=== PATIENT | male | born 1985 | race American Indian/Alaskan Native ===

== ENCOUNTER 2016-08-12 15:04 | Emergency (ER) | payer MEDICAID, OTHER ==
[2016-08-12 15:09] VITALS: TEMP 98.3; BMI 38.4
--- NOTE | 2016-08-12 15:30 | ED PDOC ---
Arrival/HPI - General Historian: Patient <Audie Wagner - Last Filed: 08/12/16 21:39> <Silviano Jackson - Last Filed: 08/12/16 21:45> - General Chief Complaint: Lower Extremity Problem/Injury Time Seen by Provider: 08/12/16 15:26 - History of Present Illness Narrative History of Present Illness (Text): 08/12/16 15:27 30 y/o male, no significant pmh, nkda, c/o rt. ankle pain s/p inversion injury about 3 days ago. Aching pain, aggravated by walking and bearing weight, no numbness or tingling, no foot pain, no dizziness, no change in vision, no night sweat, no palpitation, no other medical or psychological complaints. (Audie Wagner) Past Medical History - Provider Review Nursing Documentation Reviewed: Yes - Infectious Disease Hx of Infectious Diseases: None - Tetanus Immunization Tetanus Immunization: Unknown - Reproductive Currently : No Currently Lactating: No - Past Medical History Past Medical History: No Previous - Psychiatric Hx Depression: No Hx Emotional Abuse: No Hx Physical Abuse: No Hx Substance Use: No - Past Surgical History Past Surgical History: No Previous - Anesthesia Hx Anesthesia: No Hx Anesthesia Reactions: No Hx Malignant Hyperthermia: No - Suicidal Assessment Feels Threatened In Home Enviroment: No <Audie Wagner - Last Filed: 08/12/16 21:39> Family/Social History - Physician Review Nursing Documentation Reviewed: Yes Family/Social History: Unknown Family HX Smoking Status: Never Smoked Hx Alcohol Use: Yes Hx Substance Use: No Hx Substance Use Treatment: No <Audie Wagner - Last Filed: 08/12/16 21:39> Allergies/Home Meds <Audie Wagner - Last Filed: 08/12/16 21:39> <Silviano Jackson - Last Filed: 08/12/16 21:45> Allergies/Adverse Reactions: Allergies No Known Allergies Allergy (Verified 04/23/16 11:18) Home Medications: Home Meds Medication Instructions Recorded Confirmed No Known Home Med 08/12/16 08/12/16 Review of Systems - Review of Systems Constitutional: absent: Fatigue, Fevers Eyes: absent: Vision Changes ENT: absent: Hearing Changes Respiratory: absent: Cough Cardiovascular: absent: Chest Pain Gastrointestinal: absent: Abdominal Pain, Diarrhea, Nausea, Vomiting Musculoskeletal: Arthralgias. absent: Back Pain, Neck Pain, Joint Swelling, Myalgias Skin: absent: Rash, Pruritis Endocrine: absent: Diaphoresis Hemo/Lymphatic: absent: Adenopathy Psychiatric: absent: Anxiety <Audie Wagner - Last Filed: 08/12/16 21:39> Physical Exam Vital Signs Reviewed: Yes Temperature: Afebrile Blood Pressure: Hypertensive Pulse: Tachycardic Respiratory Rate: Normal Appearance: Positive for: Well-Appearing, Non-Toxic, Comfortable Pain Distress: Moderate Mental Status: Positive for: Alert and Oriented X 3 - Systems Exam Head: Present: Atraumatic, Normocephalic Pupils: Present: PERRL Extroacular Muscles: Present: EOMI Conjunctiva: Present: Normal Mouth: Present: Moist Mucous Membranes Neck: Present: Normal Range of Motion Respiratory/Chest: Present: Clear to Auscultation, Good Air Exchange. No: Respiratory Distress, Accessory Muscle Use Cardiovascular: Present: Regular Rate and Rhythm, Normal S1, S2. No: Murmurs Abdomen: Present: Normal Bowel Sounds. No: Tenderness, Distention, Peritoneal Signs Back: Present: Normal Inspection Upper Extremity: Present: Normal Inspection. No: Cyanosis, Edema Lower Extremity: Present: Normal Inspection, Other (Rt. ankle/foot: +ttp and mild swelling to the lateral and medial malleolus region, negative shekhar and roque signs, no foot tenderness or swelling, FROM without limitation, sesnation intact, motor 5/5, +DPPT pulses, capillary refill< 2 seconds, neurovascular intact. ). No: Edema Neurological: Present: GCS=15, Speech Normal, Motor Func Grossly Intact, Memory Normal Skin: Present: Warm, Dry, Normal Color. No: Rashes Psychiatric: Present: Alert, Oriented x 3, Normal Insight, Normal Concentration <Audie Wagner - Last Filed: 08/12/16 21:39> Vital Signs Temp Pulse Resp BP Pulse Ox 08/12/16 16:36 92 H 18 142/86 98 08/12/16 15:07 98.3 F 118 H 16 155/103 H 97 Medical Decision Making - RAD Interpretation Lace Cutter: Radiologist <Audie Wagner - Last Filed: 08/12/16 21:39> <Silviano Jacskon - Last Filed: 08/12/16 21:45> ED Course and Treatment: 08/12/16 15:29 -motrin, pt. refused IV or IM -xray -observe and reassess 08/12/16 16:27 -Rt. ankle show no fracture or dislocation except soft tissue swelling, hussein wrap applied with neurovascular intact, crutches given. -Discharge home with naproxen, hussein wrap, crutches, ice pack, non-weight bearing , follow up with your own pmd and orthopedic within 2 days, return to the ER for any new or worsening signs or symptoms. (Audie Wagner) - RAD Interpretation Radiology Orders: 08/12/16 15:26 ANKLE RIGHT 3 VIEWS ROUTINE [RAD] Stat no acute fracture, lateral soft tissue swelling. (Audie Wagner) - Medication Orders Current Medication Orders: Discontinued Medications Ibuprofen (Motrin Tab) 800 mg PO STAT STA Stop: 08/12/16 15:27 Last Admin: 08/12/16 16:37 Dose: 800 MG Comments: Patient initially refused. Now requesting medication. [facility] Pain/Vitals Document 08/12/16 16:37 SF (Rec: 08/12/16 16:38 SF [facility] [id number]) Pain Reassessment Is This A Pain ReAssessment? Yes Sleep Is patient sleeping during reassessment? No Presence of Pain Presence of Pain Yes Pain Scale Used Pain Scale Used Numeric Location Left, Right or Bilateral Right Pain Location Body Site Ankle Description Constant Intensity 8 Scale Used Numeric - PA / REPAIRER [employer] / Resident Statement MD/DO has reviewed & agrees with the documentation as recorded. <Silviano Jackson - Last Filed: 08/12/16 21:45> Disposition/Present on Arrival - Present on Arrival Any Indicators Present on Arrival: No History of DVT/PE: No History of Uncontrolled Diabetes: No Urinary Catheter: No History of Decub. Ulcer: No History Surgical Site Infection Following: None - Disposition Have Diagnosis and Disposition been Completed?: Yes Disposition Time: 16:28 Patient Plan: Discharge <Audie Wagner - Last Filed: 08/12/16 21:39> <Silviano Jackson - Last Filed: 08/12/16 21:45> - Disposition Diagnosis: Ankle injury, Ankle pain Disposition: HOME/ ROUTINE Condition: GOOD Additional Instructions: Discharge home with naproxen, hussein wrap, crutches, ice pack, non-weight bearing, follow up with your own pmd and orthopedic within 2 days, return to the ER for any new or worsening signs or symptoms. Referrals: Gentry Girard MD [Staff Provider] - Follow up with primary Forms: WORK NOTE
[2016-08-12 16:37] VITALS: BP 142/86; PULSE 92; RESP 18; O2SAT 98
--- NOTE | 2016-08-12 17:17 | RAD ---
PROCEDURE: Right Ankle Radiographs. HISTORY: rt. ankle inversion injury x 3 days COMPARISON: None FINDINGS: BONES: Normal. No fracture. JOINTS: Normal. No osteoarthritis. Ankle mortise maintained. Talar dome intact SOFT TISSUES: Lateral soft tissue swelling is noted. OTHER FINDINGS: None. IMPRESSION: No acute fracture. Lateral soft tissue swelling.
== END 2016-08-12 16:42 | disposition home or self-care (01) ==
LOC: ED 15:04
DX: S99.911A Unspecified injury of right ankle, initial encounter (principal); X58.XXXA Exposure to other specified factors, initial encounter; M25.571 Pain in right ankle and joints of right foot

== ENCOUNTER 2016-09-17 10:23 | Emergency (ER) | payer MEDICAID ==
[2016-09-17 10:23] VITALS: BMI 38.4
[2016-09-17 10:29] VITALS: BP 140/92; RESP 18; TEMP 98.4
--- NOTE | 2016-09-17 10:31 | ED PDOC ---
Arrival/HPI - General Time Seen by Provider: 09/17/16 10:24 Historian: Patient - History of Present Illness Narrative History of Present Illness (Text): 09/17/16 10:30 30 y/o male, no pmh, nkda, c/o rt. armpit abscess x 3 days with no fever or chills. Aching pain, started off as a small pimple and been growing, no fever or chills, no difficulty moving the rt. upper extremity with no numbness or tingling, no headache or night sweat, no change in vision, no rash, no other medical or psychological complaints. Past Medical History - Provider Review Nursing Documentation Reviewed: Yes - Infectious Disease Hx of Infectious Diseases: None - Tetanus Immunization Tetanus Immunization: Unknown - Reproductive Currently : No Currently Lactating: No - Past Medical History Past Medical History: No Previous - Psychiatric Hx Depression: No Hx Emotional Abuse: No Hx Physical Abuse: No Hx Substance Use: No - Past Surgical History Past Surgical History: No Previous - Anesthesia Hx Anesthesia: No Hx Anesthesia Reactions: No Hx Malignant Hyperthermia: No - Suicidal Assessment Feels Threatened In Home Enviroment: No Family/Social History - Physician Review Nursing Documentation Reviewed: Yes Family/Social History: Unknown Family HX Smoking Status: Never Smoked Hx Alcohol Use: Yes Hx Substance Use: No Hx Substance Use Treatment: No Allergies/Home Meds Allergies/Adverse Reactions: Allergies No Known Allergies Allergy (Verified 09/17/16 10:29) Review of Systems - Review of Systems Constitutional: absent: Fatigue, Fevers Eyes: absent: Vision Changes ENT: absent: Hearing Changes Respiratory: absent: Cough, Sputum Cardiovascular: absent: Chest Pain Gastrointestinal: absent: Abdominal Pain, Nausea, Vomiting Skin: Abscess. absent: Rash, Pruritis, Skin Lesions, Laceration, Ulcer, Cellulitis Neurological: absent: Headache, Dizziness, Speech Changes, Facial Droop Physical Exam Vital Signs Temp Pulse Resp BP Pulse Ox 09/17/16 10:25 98.4 F 110 H 18 140/92 H 99 Temperature: Afebrile Blood Pressure: Hypertensive Pulse: Tachycardic Respiratory Rate: Normal Appearance: Positive for: Well-Appearing, Non-Toxic, Comfortable Pain Distress: Moderate Mental Status: Positive for: Alert and Oriented X 3 - Systems Exam Head: Present: Atraumatic, Normocephalic Pupils: Present: PERRL Extroacular Muscles: Present: EOMI Conjunctiva: Present: Normal Mouth: Present: Moist Mucous Membranes Neck: Present: Normal Range of Motion Respiratory/Chest: Present: Clear to Auscultation, Good Air Exchange. No: Respiratory Distress, Accessory Muscle Use Cardiovascular: Present: Regular Rate and Rhythm, Normal S1, S2. No: Murmurs Abdomen: Present: Normal Bowel Sounds. No: Tenderness, Distention, Peritoneal Signs Back: Present: Normal Inspection Upper Extremity: Present: Normal Inspection. No: Cyanosis, Edema Lower Extremity: Present: Normal Inspection. No: Edema Neurological: Present: GCS=15, Speech Normal, Motor Func Grossly Intact, Gait Normal, Memory Normal Skin: Present: Warm, Dry, Rashes (rt. axillary visible and palpable fluctuant abscess noted with confimed by bedside sonogram with tracts form noted, no cellultis or ulcer. ), Normal Color Psychiatric: Present: Alert, Oriented x 3, Normal Insight, Normal Concentration Medical Decision Making ED Course and Treatment: 09/17/16 11:11 -keflex, bactrim ds, motrin -sensation intact, motor 5/5, clean with saline and betadine, 1% lidocaine injected locally approx. 1cc of plain 1% lidocaine noted, #11 blade made less than 1cm incision wound on each abscess region with total of approx. 5cc of purulant discharge noted, iodofoam packing inserted on each incision wound, hemostasis obtained, bacitracin applied, gauze dressing, sensation intact, motor 5/5. -Pt. feels much better, will discharge home. -Discharge home with keflex, bactrim ds, motrin, keep the dressing dry and clean for 2 days which you have to return to the ER for packing change and removal, follow up with your own pmd and general surgeon within 2 days, return to the ER for any new or worsening signs or symptoms. - PA / DIRECTOR MOBILE / Resident Statement MD/DO has reviewed & agrees with the documentation as recorded. Disposition/Present on Arrival - Present on Arrival Any Indicators Present on Arrival: No History of DVT/PE: No History of Uncontrolled Diabetes: No Urinary Catheter: No History of Decub. Ulcer: No History Surgical Site Infection Following: None - Disposition Have Diagnosis and Disposition been Completed?: Yes Diagnosis: Abscess of axillary fold Disposition: HOME/ ROUTINE Disposition Time: :17 Patient Plan: Discharge Condition: GOOD Additional Instructions: Discharge home with keflex, bactrim ds, motrin, keep the dressing dry and clean for 2 days which you have to return to the ER for packing change and removal, follow up with your own pmd and general surgeon within 2 days, return to the ER for any new or worsening signs or symptoms. Prescriptions: Sulfamethoxazole/Trimethoprim [Bactrim Ds Tablet] 1 each PO BID #20 tablet Cephalexin [Keflex] 500 mg PO QID #40 capsule Ibuprofen [Motrin Tab] 600 mg PO QID PRN #24 tab PRN Reason: Other Referrals: James Fonseca MD [Staff Provider] - Follow up with primary [facility] [place] [Outside] - Follow up with primary Forms: WORK NOTE
[2016-09-17] MEDS ORDERED: Tmp-Smz 800 mg-160 mg DS Tab PO STA (11:06)
[2016-09-17 11:24] VITALS: PULSE 95; O2SAT 100
== END 2016-09-17 11:35 | disposition home or self-care (01) ==
LOC: ED 10:23
DX: L02.411 Cutaneous abscess of right axilla (principal)

== ENCOUNTER 2016-09-19 11:19 | Emergency (ER) | payer MEDICAID ==
[2016-09-19 11:19] VITALS: BMI 38.4
[2016-09-19 11:41] VITALS: RESP 16; TEMP 97.6
--- NOTE | 2016-09-19 12:14 | ED PDOC ---
Arrival/HPI - General Chief Complaint: Wound Check Time Seen by Provider: 09/19/16 12:12 Historian: Patient - History of Present Illness Narrative History of Present Illness (Text): 09/19/16 12:12 30yo male in ED for packing removal. Packing was placed here on 09/17/17 s/p I&D two days ago. Denies fever, chills, any other complaint. Past Medical History - Provider Review Nursing Documentation Reviewed: Yes - Infectious Disease Hx of Infectious Diseases: None - Tetanus Immunization Tetanus Immunization: Unknown - Reproductive Currently : No Currently Lactating: No - Past Medical History Past Medical History: No Previous - Psychiatric Hx Depression: No Hx Emotional Abuse: No Hx Physical Abuse: No Hx Substance Use: No - Past Surgical History Past Surgical History: No Previous - Anesthesia Hx Anesthesia: No Hx Anesthesia Reactions: No Hx Malignant Hyperthermia: No - Suicidal Assessment Feels Threatened In Home Enviroment: No Family/Social History - Physician Review Nursing Documentation Reviewed: Yes Family/Social History: Unknown Family HX Smoking Status: Never Smoked Hx Alcohol Use: No Hx Substance Use: No Hx Substance Use Treatment: No Allergies/Home Meds Allergies/Adverse Reactions: Allergies No Known Allergies Allergy (Verified 09/19/16 11:40) Review of Systems - Physician Review All systems were reviewed & negative as marked: Yes - Review of Systems Constitutional: Normal Eyes: Normal ENT: Normal Respiratory: Normal Cardiovascular: Normal Gastrointestinal: Normal Genitourinary Male: Normal Musculoskeletal: Normal Skin: Other (Packing removal) Neurological: Normal Endocrine: Normal Hemo/Lymphatic: Normal Psychiatric: Normal Physical Exam Vital Signs Reviewed: Yes Vital Signs Temp Pulse Resp BP Pulse Ox 09/19/16 12:36 86 16 140/90 97 09/19/16 11:40 97.6 F 92 H 16 153/110 H 96 Temperature: Afebrile Blood Pressure: Normal Pulse: Regular Respiratory Rate: Normal Appearance: Positive for: Well-Appearing, Non-Toxic, Comfortable Pain Distress: None Mental Status: Positive for: Alert and Oriented X 3 - Systems Exam Head: Present: Atraumatic, Normocephalic Pupils: Present: PERRL Extroacular Muscles: Present: EOMI Conjunctiva: Present: Normal Mouth: Present: Moist Mucous Membranes Neck: Present: Normal Range of Motion Respiratory/Chest: Present: Clear to Auscultation, Good Air Exchange. No: Respiratory Distress, Accessory Muscle Use Cardiovascular: Present: Regular Rate and Rhythm, Normal S1, S2. No: Murmurs Abdomen: Present: Normal Bowel Sounds. No: Tenderness, Distention, Peritoneal Signs Back: Present: Normal Inspection Upper Extremity: Present: Normal Inspection. No: Cyanosis, Edema Lower Extremity: Present: Normal Inspection. No: Edema Neurological: Present: GCS=15, CN II-XII Intact, Speech Normal Skin: Present: Warm, Dry, Normal Color. No: Rashes Psychiatric: Present: Alert, Oriented x 3, Normal Insight, Normal Concentration Medical Decision Making ED Course and Treatment: 09/19/16 17:59 PT in ED for packing removal. He was afebrile. Packing was removed. Area cleaned with betadine and dressed. Some area of induration still noted. Pt advised to apply warm compress to area. Referred to his PMD. TRT ED for any new or worsening symptoms. Repeat BP improved. Disposition/Present on Arrival - Present on Arrival Any Indicators Present on Arrival: No History of DVT/PE: No History of Uncontrolled Diabetes: No Urinary Catheter: No History of Decub. Ulcer: No History Surgical Site Infection Following: None - Disposition Have Diagnosis and Disposition been Completed?: Yes Diagnosis: Wound check, abscess Disposition: HOME/ ROUTINE Disposition Time: 12:15 Patient Plan: Discharge Condition: STABLE Discharge Instructions (ExitCare): Acute Wound Care (ED) Additional Instructions: Follow up with your doctor Return to ED for any new or worsening symptoms Referrals: [facility] [place] [facility] [place] - Follow up with primary
[2016-09-19 12:37] VITALS: BP 140/90; PULSE 86; O2SAT 97
== END 2016-09-19 12:56 | disposition home or self-care (01) ==
LOC: ED 11:19
DX: Z48.01 Encounter for change or removal of surgical wound dressing (principal)

== ENCOUNTER 2016-12-10 08:41 | Emergency (ER) | payer MEDICAID ==
[2016-12-10 08:42] VITALS: BMI 38.4
--- NOTE | 2016-12-10 09:21 | ED PDOC ---
Arrival/HPI - General Chief Complaint: Lower Extremity Problem/Injury Time Seen by Provider: 12/10/16 09:16 Historian: Patient - History of Present Illness Narrative History of Present Illness (Text): 12/10/16 09:16 This 31 yo male is brought to this ED c/o right ankle pain and swelling since last night. Patient stated he stumbled as he was walking downstairs, and twisted his right ankle. Denies knee pain, head injury, back pain, hip pain, neck pain, weakness, paresthesias, diplopia, or dizziness. Time/Duration: Other (last night) Quality: Aching Context: Home Past Medical History - Provider Review Nursing Documentation Reviewed: Yes - Infectious Disease Hx of Infectious Diseases: None - Tetanus Immunization Tetanus Immunization: Unknown - Reproductive Currently : No Currently Lactating: No - Past Medical History Past Medical History: No Previous - Psychiatric Hx Depression: No Hx Emotional Abuse: No Hx Physical Abuse: No Hx Substance Use: No - Past Surgical History Past Surgical History: No Previous - Anesthesia Hx Anesthesia: No Hx Anesthesia Reactions: No Hx Malignant Hyperthermia: No - Suicidal Assessment Feels Threatened In Home Enviroment: No Family/Social History - Physician Review Nursing Documentation Reviewed: Yes Family/Social History: No Known Family HX Smoking Status: Never Smoked Hx Alcohol Use: No Hx Substance Use: No Hx Substance Use Treatment: No Allergies/Home Meds Allergies/Adverse Reactions: Allergies No Known Allergies Allergy (Verified 09/19/16 11:40) Review of Systems - Review of Systems Constitutional: Normal. absent: Fatigue, Weight Change, Fevers Eyes: Normal ENT: Normal Respiratory: Normal Cardiovascular: Normal Gastrointestinal: Normal Genitourinary Male: Normal Musculoskeletal: Other (right ankle swelling) Skin: Normal Neurological: Normal Endocrine: Normal Hemo/Lymphatic: Normal Psychiatric: Normal Physical Exam Vital Signs Temp Pulse Resp BP Pulse Ox 12/10/16 08:53 98.2 F 110 H 17 141/101 H 97 Temperature: Afebrile Blood Pressure: Normal Pulse: Regular Respiratory Rate: Normal Appearance: Positive for: Well-Appearing, Non-Toxic, Comfortable Pain Distress: None Mental Status: Positive for: Alert and Oriented X 3 - Systems Exam Head: Present: Atraumatic, Normocephalic Pupils: Present: PERRL Extroacular Muscles: Present: EOMI Conjunctiva: Present: Normal Mouth: Present: Moist Mucous Membranes Neck: Present: Normal Range of Motion Respiratory/Chest: Present: Clear to Auscultation, Good Air Exchange. No: Respiratory Distress, Accessory Muscle Use Cardiovascular: Present: Regular Rate and Rhythm, Normal S1, S2. No: Murmurs Back: Present: Normal Inspection. No: CVA Tenderness Upper Extremity: Present: Normal Inspection, Normal ROM, NORMAL PULSES, Neurovascularly Intact, Capillary Refill < 2s. No: Cyanosis, Edema Lower Extremity: Present: Normal Inspection, NORMAL PULSES, Normal ROM, Neurovascularly Intact, Capillary Refill < 2 s, Other (Vill[place] test was negative. No tenderness over posterior ankle or calf. No tenderness prox. fibula on palpation. Knees have FROM). No: Edema, CALF TENDERNESS Neurological: Present: GCS=15, CN II-XII Intact, Speech Normal, Motor Func Grossly Intact, Normal Sensory Function, Normal Cerebellar Funct, Gait Normal Skin: Present: Warm, Dry, Normal Color. No: Rashes Psychiatric: Present: Alert, Oriented x 3 Medical Decision Making ED Course and Treatment: Re-evaluation. Patient feels better. Discussed results and plan with patient who expresses understanding. All questions answered and there is agreement with the plan to discharge home with instructions. Patient stable for discharge. Return if symptoms persist or worsen. Patient brought his own crutches. Air cast was ordered Re-evaluation Time: 10:08 Reassessment Condition: Re-examined, Improved - RAD Interpretation Narrative RAD Interpretations (Text): 12/10/16 10:08 Ankle x-rays: No fx Foot x-rays: No fx Radiology Orders: 12/10/16 09:13 ANKLE RIGHT 3 VIEWS ROUTINE [RAD] Stat 12/10/16 09:22 FOOT RIGHT 3 VIEWS ROUTINE [RAD] Stat - Medication Orders Current Medication Orders: Discontinued Medications Ketorolac Tromethamine (Toradol) 30 mg IM STAT STA Stop: 12/10/16 10:10 Last Admin: 12/10/16 10:37 Dose: 30 mg Disposition/Present on Arrival - Present on Arrival Any Indicators Present on Arrival: No History of DVT/PE: No History of Uncontrolled Diabetes: No Urinary Catheter: No History of Decub. Ulcer: No History Surgical Site Infection Following: None - Disposition Have Diagnosis and Disposition been Completed?: Yes Diagnosis: Ankle sprain Disposition: HOME/ ROUTINE Disposition Time: 10:09 Condition: GOOD Discharge Instructions (ExitCare): Ankle Sprain (ED) Additional Instructions: Call private doctor for follow up visit in 1-2 days. If symptoms persist, call projection engineer. keep ankle elevated, ice, rest, cast, crutches for at least 5 days. return to emergency if symptoms worsen. Prescriptions: Ibuprofen [Motrin] 600 mg PO Q8 PRN #20 tab PRN Reason: Pain, Severe (8-10) Referrals: Esau Bernardo [Primary Care Provider] - Follow up with primary Chris Rider DPM [Staff Provider] - Follow up with primary
--- NOTE | 2016-12-10 10:08 | RAD ---
PROCEDURE: Right ankle dated 12/10/2016 HISTORY: Rule out fracture COMPARISON: Comparison made with concurrent radiographs right foot 12/10/2016 as well as prior radiographs of the right ankle 08/12/2016. FINDINGS: BONES: No definitive radiographic evidence of acute displaced fracture nor dislocation. The osseous structures appear intact. Talar dome intact. JOINTS: Ankle mortise maintained. No significant osteoarthritis. Probable small joint effusion. SOFT TISSUES: Moderate lateral and mild medial soft tissue swelling. In addition, there also appears to be mild dorsal soft tissue swelling at the level of the metatarsals. OTHER FINDINGS: None. IMPRESSION: No definitive radiographic evidence of acute displaced fracture nor dislocation. If symptoms persist or occult fracture suspected clinically recommend repeat radiographs in 5-10 days as most fractures should become radiographically evident in this timeframe. Moderate lateral and mild medial soft tissue swelling.
--- NOTE | 2016-12-10 11:24 | RAD ---
PROCEDURE: Right Foot Radiographs. HISTORY: r/o fx COMPARISON: Comparison made with the concurrent radiographs of the right ankle FINDINGS: BONES: No definitive evidence of acute displaced fracture nor dislocation. The osseous structures appear intact. JOINTS: Joint spaces preserved. SOFT TISSUES: Moderate soft tissue swelling over the lateral and mild soft tissue swelling over the medial malleoli are again noted though less well seen on this study as compared to dedicated ankle radiographs. OTHER FINDINGS: None. IMPRESSION: No acute displaced fracture nor dislocation. If symptoms persist or occult fracture suspected clinically recommend repeat radiographs in 5-10 days as most fractures should become radiographically evident in this timeframe.
[2016-12-10 12:45] VITALS: BP 141/101; PULSE 110; RESP 17; TEMP 98.2; O2SAT 97
== END 2016-12-10 10:41 | disposition home or self-care (01) ==
LOC: ED 08:41
DX: S93.401A Sprain of unspecified ligament of right ankle, initial encounter (principal); W10.8XXA Fall (on) (from) other stairs and steps, initial encounter; Y93.89 Activity, other specified; Y92.89 Other specified places as the place of occurrence of the external cause
CPT/HCPCS: 29540; 73610; 73630; 96372; 99283; J1885

== ENCOUNTER 2017-04-26 11:06 | Emergency (ER) | payer MEDICAID ==
[2017-04-26 11:07] VITALS: BMI 38.4
[2017-04-26 11:33] VITALS: RESP 18; TEMP 98.2; O2SAT 98
--- NOTE | 2017-04-26 11:56 | ED PDOC ---
Arrival/HPI - General Chief Complaint: Finger,Hand,&Wrist Time Seen by Provider: 04/26/17 11:38 Historian: Patient - History of Present Illness Narrative History of Present Illness (Text): 04/26/17 11:55 31yo male present with complaint of right 4th finger pain x 3days. Notes that he accidentally "bumped" his finger against a window, while fixing the window 3days ago. States it became swollen this morning. did not take any medication for the pain. Denies any other complaint. Past Medical History - Provider Review Nursing Documentation Reviewed: Yes - Infectious Disease Hx of Infectious Diseases: None - Tetanus Immunization Tetanus Immunization: Unknown - Reproductive Currently : No Currently Lactating: No - Past Medical History Past Medical History: No Previous - Psychiatric Hx Depression: No Hx Emotional Abuse: No Hx Physical Abuse: No Hx Substance Use: No - Past Surgical History Past Surgical History: No Previous - Anesthesia Hx Anesthesia: No Hx Anesthesia Reactions: No Hx Malignant Hyperthermia: No - Suicidal Assessment Feels Threatened In Home Enviroment: No Family/Social History - Physician Review Nursing Documentation Reviewed: Yes Family/Social History: Unknown Family HX Smoking Status: Never Smoked Hx Alcohol Use: No Hx Substance Use: No Hx Substance Use Treatment: No Allergies/Home Meds Allergies/Adverse Reactions: Allergies No Known Allergies Allergy (Verified 04/26/17 11:33) Review of Systems - Physician Review All systems were reviewed & negative as marked: Yes - Review of Systems Constitutional: Normal Eyes: Normal ENT: Normal Respiratory: Normal Cardiovascular: Normal Gastrointestinal: Normal Genitourinary Male: Normal Musculoskeletal: Arthralgias (right 4th finger) Skin: Normal Neurological: Normal Endocrine: Normal Hemo/Lymphatic: Normal Psychiatric: Normal Physical Exam Vital Signs Reviewed: Yes Vital Signs Temp Pulse Resp BP Pulse Ox 04/26/17 12:34 86 18 128/75 98 04/26/17 11:28 98.2 F 97 H 18 134/84 98 Temperature: Afebrile Blood Pressure: Normal Pulse: Regular Respiratory Rate: Normal Appearance: Positive for: Well-Appearing, Non-Toxic, Comfortable Pain Distress: None Mental Status: Positive for: Alert and Oriented X 3 - Systems Exam Head: Present: Atraumatic, Normocephalic Pupils: Present: PERRL Extroacular Muscles: Present: EOMI Conjunctiva: Present: Normal Mouth: Present: Moist Mucous Membranes Neck: Present: Normal Range of Motion Respiratory/Chest: Present: Clear to Auscultation, Good Air Exchange. No: Respiratory Distress, Accessory Muscle Use Cardiovascular: Present: Regular Rate and Rhythm, Normal S1, S2. No: Murmurs Abdomen: Present: Normal Bowel Sounds. No: Tenderness, Distention, Peritoneal Signs Back: Present: Normal Inspection Upper Extremity: Present: Normal ROM (with pain on flexion of 4th finger), NORMAL PULSES, Tenderness (diffuse right 4th finger), Swelling, Neurovascularly Intact. No: Cyanosis, Edema, Deformity Lower Extremity: Present: Normal Inspection. No: Edema Neurological: Present: GCS=15, CN II-XII Intact, Speech Normal Skin: Present: Warm, Dry, Normal Color. No: Rashes Psychiatric: Present: Alert, Oriented x 3, Normal Insight, Normal Concentration Medical Decision Making ED Course and Treatment: 04/26/17 12:54 right hand xray - No fracture/disolcaotion finger splint placed. Pt referred to his PMd. Rx of Ibuprofen 600mg given. Referred to his PMd. - RAD Interpretation Radiology Orders: 04/26/17 11:46 HAND RIGHT 4TH DIGIT (FINGER) [RAD] Stat - Medication Orders Current Medication Orders: Discontinued Medications Ibuprofen (Motrin Tab) 600 mg PO STAT STA Stop: 04/26/17 11:47 Last Admin: 04/26/17 12:02 Dose: 600 mg MAR Pain/Vitals Document 04/26/17 12:02 EQ (Rec: 04/26/17 12:02 EQ [facility] [id number]) Pain Reassessment Is This A Pain ReAssessment? No Sleep Is patient sleeping during reassessment? No Presence of Pain Presence of Pain Yes Disposition/Present on Arrival - Present on Arrival Any Indicators Present on Arrival: No History of DVT/PE: No History of Uncontrolled Diabetes: No Urinary Catheter: No History of Decub. Ulcer: No History Surgical Site Infection Following: None - Disposition Have Diagnosis and Disposition been Completed?: Yes Diagnosis: Finger sprain Disposition: HOME/ ROUTINE Disposition Time: 12:55 Patient Plan: Discharge Condition: STABLE Discharge Instructions (ExitCare): Finger Sprain (ED) Additional Instructions: Follow up with your doctor return to Ed for any new symptoms Prescriptions: Ibuprofen [Motrin Tab] 600 mg PO Q6 #20 tab Forms: [employer] (Serbian), WORK NOTE
--- NOTE | 2017-04-26 12:47 | RAD ---
PROCEDURE: Right ring finger radiographs. HISTORY: finger pain s/p trauma COMPARISON: None. TECHNIQUE: AP radiograph of the right hand, as well as spot oblique and lateral images of ring finger were obtained. FINDINGS: RIGHT RING FINGER: No fracture or dislocation. JOINTS: Normal. SOFT TISSUES: Fourth digit dorsal tissue swelling OTHER FINDINGS: None. IMPRESSION: Ring 4th finger soft tissue swelling. No fracture or osseous abnormality appreciated. No radiopaque foreign body appreciated
[2017-04-26 13:08] VITALS: BP 125/73; PULSE 79
== END 2017-04-26 13:16 | disposition home or self-care (01) ==
LOC: ED 11:06
DX: S63.614A Unspecified sprain of right ring finger, initial encounter (principal); W22.8XXA Striking against or struck by other objects, initial encounter